=== PATIENT | male | born 1965 | race Caucasian/White ===

== ENCOUNTER 2018-02-26 14:37 | Emergency (ER) | payer SELFPAY ==
[~2018-02-26] VITALS: Ht 182.9 cm; Wt 66.8 kg
[~2018-02-26 14:37] MED LIST: BACT800T5 PO; CEPH500C3 PO; HYDR-3533 PO; PREV15CA20 PO; TAB-TAB PO
[2018-02-26 14:43] VITALS: BP 134/84; PULSE 55; RESP 16; TEMP 97.8; O2SAT 99
[2018-02-26] MEDS ORDERED: AUGM875T3 PO (14:57)
[2018-02-26] MEDS ORDERED: TETANUS/DIPHTHERIA TOXOID ADULT 0.5 ML VIAL IM ONE (15:00)
--- NOTE | 2018-02-26 15:01 | PD ---
HPI Chief Complaint: Bite or Sting Time Seen by Provider: 14:55 Travel History International Travel<30 days: No Contact w/Intl Traveler<30days: No Traveled to known affect area: No History of Present Illness HPI Patient comes to the emergency department for evaluation of a dog bite to his left thigh that occurred 2 nights ago. Patient reported he was at his friend's house when his friend's pit bull bit his left inner thigh. Patient reports cleaning this and keeping it covered, but continues to have pain still occasionally having some bleeding with this. Patient reports he is on Plavix and aspirin. Patient reports pain that is throbbing-like nature around site of bite without radiation. Pain is worse with palpation and walking. Patient reports dogs vaccinations are up-to-date. Patient reports he thinks his tetanus shot was 5 years ago but is uncertain. Denies any fevers, numbness tingling anywhere, or weakness. PFSH Past Medical History Arthritis: Yes Autoimmune Disease: No Cardiovascular Problems: No Diminished Hearing: No GERD: Yes Musculoskeletal: No Neurologic: No Respiratory: No Immunizations Current: No Past Surgical History Other Surgery: No (VARIOUS TUMORS) Social History Alcohol Use: No Tobacco Use: Yes (2 PACKS PER DAY) Substance Use: No Allergies-Medications (Allergen,Severity, Reaction): Uncoded Allergies: SUTURE (Allergy, Severe, BLOOD POISON, 02/19/15) STEROIDS (Allergy, Intermediate, SWELLING, 02/19/15) Reported Meds & Prescriptions Reported Meds & Active Scripts Active Augmentin (Amoxicillin-Clavulanate) 875-125 Mg Tab 1 Tab PO BID 10 Days Review of Systems Except as stated in HPI: all other systems reviewed are Neg Physical Exam Narrative GENERAL: Well-developed, well nourished, in no acute distress, and non-ill appearing. SKIN: Small superficial healing wounds noted left inner thigh with surrounding ecchymosis. Is tender to palpation without crepitus. No active bleeding or drainage currently. HEAD: Atraumatic. Normocephalic. EYES: Pupils equal and round. EOMI. No scleral icterus. No injection or drainage. ENT: No nasal bleeding or discharge. Mucous membranes pink and moist. NECK: Trachea midline. Supple. No nuclear rigidity. RESPIRATORY: No accessory muscle use. No respiratory distress. MUSCULOSKELETAL: No obvious deformities. No clubbing. No cyanosis. No edema. Full range of motion. NEUROLOGICAL: Awake and alert. No obvious cranial nerve deficits. Motor grossly within normal limits. Normal speech. PSYCHIATRIC: Appropriate mood and affect; insight and judgment normal. Data Data Last Documented VS Vital Signs Date Time Temp Pulse Resp B/P (MAP) Pulse Ox O2 Delivery O2 Flow Rate FiO2 02/26/18 14:43 97.8 55 16 134/84 (101) 99 Orders Orders Ed Discharge Order (02/26/18 14:56) Tetanus/Diphtheria Tox Adult (Tetanus/Di (02/26/18 15:00) MDM Medical Decision Making Medical Screen Exam Complete: Yes Emergency Medical Condition: Yes Differential Diagnosis Dog bite, hematoma, contusion, abrasion, laceration Narrative Course The patient suffered animal bite wound. The animal is domesticated, vaccinations are reported to be UTD and the animal can be watched. There is no evidence of deep tissue involvement and/or local tendon involvement. There was no evidence to suggest foreign bodies. Visual and tactile exams were unremarkable. There was no evidence of neurovascular injury as well. Rabies prophylaxis was discussed with the patient and exposure appears low risk and not indicated. The patient was given signs and symptom warnings for infection, such as increasing pain, pain with movement of involved extremity,redness, swelling, associated heat, pus or fever. The patient was given antibiotics to cover mouth regino and instructions for timely follow up for wound recheck. The patient agreed with plan of care. Animal control was contacted per hospital protocol. Patient in no obvious distress upon re-evaluation. Patient was asked if they wanted to speak to my attending, which the patient did not wish to do at this time. Any questions/concerns in reference to patient diagnosis/condition discussed and clarified prior to patient's discharge. Reinforced sheer importance of close follow up with patient's primary physician or primary care clinic. Instructed patient to return to ED immediately, if symptoms return/ worsen. Patient showed understanding of above instructions. Further instructions and recommendations were detailed in discharge paperwork. Patient ambulated without difficulty out of ED at discharge. Diagnosis Primary Impression: Dog bite Qualified Codes: W54.0XXA - Bitten by dog, initial encounter Referrals: [facility] Patient Instructions: Animal Bite (ED), General Instructions Additional Instructions: Follow-up with your primary care physician in 3-5 days for reevaluation. Take all medication as prescribed. Keep wound dry and clean as possible using soap and water. Use Neosporin to promote healing. Return to the emergency department if symptoms get worse. Med/Other Pt SpecificInfo: Prescription(s) given Scripts Amoxicillin-Clavulanate (Augmentin) 875-125 Mg Tab 1 TAB PO BID for Infection for 10 Days, #20 TAB 0 Refills Prov: Cira Desouza MD 02/26/18 Disposition: 01 DISCHARGE HOME Condition: Stable Ajit Fuller February 26, 2018 15:01
== END 2018-02-26 15:17 | disposition home or self-care (01) ==
LOC: PHEFT 14:37
DX: S71.152A Open bite, left thigh, initial encounter (principal); F17.200 Nicotine dependence, unspecified, uncomplicated; M19.90 Unspecified osteoarthritis, unspecified site; K21.9 Gastro-esophageal reflux disease without esophagitis; Z23 Encounter for immunization; W54.0XXA Bitten by dog, initial encounter
CPT/HCPCS: 90471; 90714